=== PATIENT | male | born 1940 | race Hispanic/Latino ===

== ENCOUNTER 2023-05-15 06:38 | Day surgery (SDC) | payer OTHER ==
[2023-05-13 15:37] LABS: BASOPHILS # (AUTO) 0.04 K/uL (0.00-0.20); BASOPHILS % (AUTO) 0.4 % (0.0-5.0); EOSINOPHILS # (AUTO) 0.08 K/uL (0.00-0.70); EOSINOPHILS % (AUTO) 0.9 % (0.0-8.0); HEMATOCRIT 37.1 % (42-54); IMMATURE GRANULOCYTE ABSOLUTE 0.04 K/uL (0-1); LYMPHOCYTES # (AUTO) 1.1 K/uL (1.0-4.8); MEAN CORPUSCULAR HEMOGLOBIN 32.2 pg (27.0-33.0); MEAN CORPUSCULAR HGB CONC 32.1 g/dL (32.0-36.0); MEAN CORPUSCULAR VOLUME 100.3 fL (79-99); MONOCYTES # (AUTO) 0.9 K/uL (0.1-1.0); MONOCYTES % (AUTO) 10.4 % (3.0-13.0); NEUTROPHILS # (AUTO) 6.8 K/uL (1.8-7.7); NEUTROPHILS % (AUTO) 75.9 % (40.0-77.0); PLATELET COUNT (AUTO) 254 K/uL (130-400); RED CELL DISTRIBUTION WIDTH 13.7 % (11.0-15.5)
[2023-05-13 15:39] LABS: APPEARANCE,URINE CLEAR (CLEAR); BILIRUBIN,URINE NEGATIVE (NEGATIVE); COLOR,URINE YELLOW (YELLOW); GLUCOSE, URINE (UA) NEGATIVE (NEGATIVE); KETONES,URINE NEGATIVE (NEGATIVE); LEUKOCYTE ESTERASE ,URINE NEGATIVE Leu/uL (NEGATIVE); NITRATE,URINE NEGATIVE (NEGATIVE); OCCULT BLOOD,URINE NEGATIVE (NEGATIVE); PROTEIN,URINE 50 mg/dL (NEGATIVE); UROBILINOGEN,URINE 0.2 mg/dL (0.2-1.0)
[2023-05-13 15:44] LABS: CREATININE 1.2 mg/dL (0.5-1.5); POTASSIUM 4.5 mmol/L (3.5-5.1)
[2023-05-13 15:47] LABS: ADD UA MICROSCOPIC YES
[2023-05-13 15:48] LABS: INR < 0.93 (0.85-1.15); PROTHROMBIN TIME 10.4 SEC (9.6-11.6)
[2023-05-13 15:49] LABS: PARTIAL THROMBOPLASTIN TIME 28.6 SEC (26.3-35.5)
[2023-05-13 15:49] LABS: BACTERIA,URINE RARE /HPF (None Seen); MUCUS,URINE RARE LPF (None Seen); RBC,URINE 0-1 /HPF (0-1); SQUAMOUS EPITHELIAL CELL,UR RARE /HPF (0-2); YEAST,URINE BUDDING RARE /HPF (None Seen)
[2023-05-13 16:07] LABS: B-TYPE NATRIURETIC PEPTIDE 54 pg/mL (0-100)
[2023-05-13 16:46] VITALS: BP 140/72; PULSE 70; RESP 17
[2023-05-15] VITALS (10 sets, daily range): BP systolic 96–154; BP diastolic 49–82; PULSE 51–67; RESP 14–18
[~2023-05-15] VITALS: Ht 165.1 cm; Wt 91.6 kg
[~2023-05-15 06:38] MED LIST: AMLO-257 PO; ATOR40TA69 PO; CLOP-31 PO; GABA300C PO; LEVO5TAB13 PO; METO-391 PO; RANO500T2 PO; SITA100T12 PO; TAMS0.4C32 PO; TRAM-355 PO
[2023-05-15] MEDS ORDERED: HEPARIN 10,000 UNIT/10ML (1,000 UNIT/ML) VIAL ONE (08:42)
[2023-05-15] MEDS ORDERED: IOHEXOL 350 MG/ML 100ML INFUS..BTL IV ONE ×2 (08:42→10:30)
[2023-05-15] MEDS ORDERED: LIDOCAINE HCL 400MG/20ML VIAL ONE (08:42)
[2023-05-15] MEDS ORDERED: SODIUM BICARB 50MEQ 50ML VIAL 50 ML ONE (08:42)
[2023-05-15] MEDS ORDERED: 0.9%NACL 1000ML 1,000 ML IV ONE (08:43)
[2023-05-15] MEDS ORDERED: NICARDIPINE 25MG INJ IV ONE (08:44)
[2023-05-15] MEDS ORDERED: IOHEXOL-350 50ML VIAL IV ONE (08:50)
[2023-05-15] MEDS ORDERED: FENTANYL CITRATE PF 50 MCG/1 ML 2ML VIAL ONE (08:51)
[2023-05-15] MEDS ORDERED: MIDAZOLAM HCL 1 MG/ML 2ML VIAL ONE (08:51)
[2023-05-15] MEDS ORDERED: 0.9%NACL 1000ML 1,000 ML IV SCH (11:30)
== END 2023-05-15 15:10 | disposition home or self-care (01) ==
LOC: DAH 06:38
PROVIDERS: ATTEND Internal Medicine Cardiovascular Disease
DX: I25.119 Atherosclerotic heart disease of native coronary artery with unspecified angina pectoris (principal); I87.1 Compression of vein; I10 Essential (primary) hypertension; E11.9 Type 2 diabetes mellitus without complications; E78.2 Mixed hyperlipidemia; Z79.01 Long term (current) use of anticoagulants; Z79.899 Other long term (current) drug therapy; Z98.890 Other specified postprocedural states; Z90.49 Acquired absence of other specified parts of digestive tract; Z82.49 Family history of ischemic heart disease and other diseases of the circulatory system; Z83.3 Family history of diabetes mellitus
CPT/HCPCS: 80048; 83880; 85025; 85610; 85730; 81001; 36415; 71045; 93005; 93458; 93571; 82948; 93572 ×3; C1769 ×2; C1887 ×3; C1894 ×3; C1760; A4649; J3010; J3490 ×3; J7030; J1644 ×3; J2250; Q9967 ×2; A4215; A4222; A4221; A4663; A4216; A4606; Q9965 ×2; A4223 ×3; 99156; 99157

== ENCOUNTER 2023-10-30 05:33 | Day surgery (SDC) | payer OTHER ==
[~2023-10-30] VITALS: Ht 167.6 cm; Wt 89.8 kg
[2023-10-30] VITALS (13 sets, daily range): BP systolic 133–159; BP diastolic 64–78; PULSE 55–72; RESP 10–18
[2023-10-30] MEDS: 0.9%NACL 1000ML 1,000 ML IV ONE (06:31)
[2023-10-30] MEDS ORDERED: LIDOCAINE HCL 400MG/20ML VIAL ONE (07:08)
[2023-10-30] MEDS ORDERED: PHENYLEPHRINE HCL 10 MG/ML 1ML VIAL IV ONE (07:08)
[2023-10-30] MEDS ORDERED: PROPOFOL 10 MG/ML 20ML VIAL IV ONE (07:08)
[2023-10-30] MEDS ORDERED: AEC81 PO (09:09)
== END 2023-10-30 09:30 | disposition home or self-care (01) ==
LOC: ENDO 05:33 → DAH 05:33 → ENDO 09:30
PROVIDERS: ATTEND Internal Medicine Gastroenterology
DX: K59.01 Slow transit constipation (principal); K57.30 Diverticulosis of large intestine without perforation or abscess without bleeding; K29.50 Unspecified chronic gastritis without bleeding; K31.89 Other diseases of stomach and duodenum; K25.9 Gastric ulcer, unspecified as acute or chronic, without hemorrhage or perforation; R63.4 Abnormal weight loss; R19.5 Other fecal abnormalities; R10.13 Epigastric pain; I25.10 Atherosclerotic heart disease of native coronary artery without angina pectoris; I10 Essential (primary) hypertension; E78.5 Hyperlipidemia, unspecified; E11.9 Type 2 diabetes mellitus without complications; M19.90 Unspecified osteoarthritis, unspecified site; Z12.11 Encounter for screening for malignant neoplasm of colon; Z88.8 Allergy status to other drugs, medicaments and biological substances; Z82.5 Family history of asthma and other chronic lower respiratory diseases; Z83.3 Family history of diabetes mellitus; Z79.82 Long term (current) use of aspirin; Z79.899 Other long term (current) drug therapy; Z90.49 Acquired absence of other specified parts of digestive tract
CPT/HCPCS: 82948 ×2; 43239; 45378; J3490; J7030 ×2; J2704; J2371; A4620; A4215 ×2; A4223; A7002; A4222; A4221; A4663; A4606